=== PATIENT | female | born 1985 | race American Indian/Alaskan Native ===

== ENCOUNTER 2019-01-20 03:01 | Inpatient (IN) | payer MEDICAID ==
[2019-01-20] MEDS ORDERED: Penicillin G Potassium 5 MILLUNITS in Sodium Chloride 0.9% 100 ML IV STA (03:21)
[2019-01-20] MEDS ORDERED: Penicillin G Potassium 5,000,000 Unit Vial ONE (03:23)
[2019-01-20] MEDS ORDERED: Oxytocin/Normal Saline 60 UNIT/1,000 ML BAG ONE (03:51)
[2019-01-20] MEDS ORDERED: Misoprostol 400 MCG (4 X 100 MCG TAB) RECTAL PRN (05:01)
[2019-01-20] MEDS ORDERED: Tranexamic Acid 1,000 MG in Sodium Chloride 0.9% 100 ML IV PRN (05:01)
[2019-01-20] MEDS ORDERED: Acetaminophen 325 MG Tab PO PRN (05:01)
[2019-01-20] MEDS ORDERED: Carboprost Tromethamine 250 MCG/1 ML Amp IM ONE (05:01)
[2019-01-20] MEDS ORDERED: Naloxone 2 MG/2 ML Syringe IVPUSH PRN (05:01)
[2019-01-20] MEDS ORDERED: ePHEDrine 50 MG/ML SDV IVPUSH PRN (05:01)
[2019-01-20] MEDS ORDERED: Methylergonovine 0.2 MG/1 ML Amp IM PRN (05:01)
[2019-01-20] MEDS ORDERED: Docusate Sodium 100 MG Cap PO PRN (05:01)
[2019-01-20] MEDS ORDERED: Acetaminophen/oxyCODONE 325-5 MG Tab PO PRN ×2 (05:01)
[2019-01-20] MEDS ORDERED: diphenhydrAMINE 50 MG/ML SDV IVPUSH PRN (05:01)
[2019-01-20] MEDS ORDERED: Ondansetron 4 MG/2 ML SDV IV PRN (05:01)
[2019-01-20] MEDS ORDERED: Lactated Ringers 1,000 ML IV SCH (05:15)
[2019-01-20] MEDS ORDERED: Oxytocin/Normal Saline 30 UNIT/500 ML BAG IV SCH (05:30)
[2019-01-20] MEDS ORDERED: Morphine PF 150 MG/30 ML PCA Syringe IV SCH (05:30)
--- NOTE | 2019-01-20 08:15 | HP ---
PATIENT IDENTIFICATION: Milton Medina is a 33-year-old, G4, P3-0-0-3, intrauterine at 29 and 2/7 weeks by her history who presents with vaginal leaking and contractions. HISTORY OF PRESENT ILLNESS: The patient states she started vaginal leaking approximately 24 hours prior to presentation. She notes it as clear in nature and continues to leak throughout the day and associated with this has been contractions that started approximately 2 hours prior to admission, increasing in frequency and intensity to the point that they are coming every couple of minutes, felt in the lower abdomen, getting worse over time. She denies any spotting or bleeding. Upon her presentation, no care records were available. A stat ultrasound was called for as well as labs with no labs drawn. records obtained later. Records were called for, reviewed as below, and supplemented by the patient's history. OBSTETRICAL HISTORY OF PREGNANCIES: 1. In 02/2013, delivered a female, weighing 7 pounds 15 ounces in [place]. 2. In 08/2015, delivered a male, 8 pounds 14 ounces in [place]. 3. In 03/2018, male delivered, 8 pounds 13 ounces in [place] with all spontaneous vaginal deliveries, and the patient denies any complications with any of her previous pregnancies. PAST MEDICAL/PAST SURGICAL HISTORY: Cholecystectomy in 2012. Otherwise, no other hospitalizations or surgeries other than for deliveries. FAMILY HISTORY: She denies any anesthesia or bleeding problems or defects. It appears to be mother from cerebral hemorrhage and brother from an MVA. She has 2 sisters living and well, 1 brother living and well, and 3 children who are living and well. SOCIAL HISTORY: The patient smokes at least a half a pack a day. Smoked about 1-1/2 packs per day prior to conception with this . She denies any alcohol, tobacco, or drug use. She lives in the [place] area. She is visiting [employer] as a student. REVIEW OF SYSTEMS: Quickly reviewed, and otherwise, reviewed fully and felt to be noncontributory. She denies any fever, chills, sweats, cough, chest pain, shortness of breath, problem with bowel or bladder habits, swelling, numbness, or tingling. OBJECTIVE: Vital Signs: Blood pressure 137/77, heart rate 85. The patient feels afebrile. Appearance: Female, appears stated age, breathing and screaming through her contractions but answering questions appropriately in between them. HEENT: Head atraumatic. EOMs grossly intact. PERRLA. No scleral icterus. No otorhinorrhea. Mucous membranes are moist. Neck: No obvious tenderness. Lungs: Clear to auscultation bilaterally. No increased work of breathing. Heart: S1 and S2. Regular rate and rhythm. Abdomen: Gravid. Bigg indeterminate. Nontender and nondistended. Bowel sounds positive. No other organomegaly, pulsatile masses, or obvious hernias. No rebound, rigidity, or guarding. Genitourinary: Normal external female genitalia. Normal position and presentation of urethra. gentle speculum exam done and positive for pooling with gross rupture of membranes. After stat ultrasound was called for and revealed fundal placenta, vaginal exam revealed her to be 7 to 8 cm, breech presentation, 100% effaced, and 0 station. Extremities: Deep tendon reflexes 1 to 2/4 bilaterally and symmetric in the lower extremities. No peripheral edema. Psychiatric: Mood and affect congruent. Judgment and insight intact. Skin: Without any cyanosis, clubbing, or jaundice. LABORATORY DATA: White cell count 11.8, hemoglobin 14.2, platelets 296. Urine drug screen positive for methamphetamine. IMAGING: Stat ultrasound was called for. I was there and reviewing the ultrasound with the tech as it was being done, did reveal limited fluid around the baby, measurements approximately between 29 and 2/7 weeks to 30 and 2/7 weeks with breech presentation noted with placenta location being fundal. There was a concern with tissue anterior to the abdomen per tech. Worried possibly from omphalocele or gastroschisis which was discussed with the patient with live time while being evaluated by myself. HOSPITAL COURSE: After labs and ultrasound were done as well as vaginal exam,, while waiting for OR crew, I did discuss with patient the need for primary low transverse . Discussed the risks, benefits, alternatives, and complications of including but limited to infection; bleeding; damage to internal organs such as bowel, bladder, tubes, uterus, ovaries, and sometimes fetus; rarely needing a blood transfusion or further surgery; and rare maternal or . She understood and agreed and wished to proceed. Verbal and written consents were obtained, and questions were answered. Male partner was available during this discussion as well. heart tones at real baseline around the 140s with severe decelerations noted as low as in the 60s to 70s that may last up to approximately 3 minutes that were difficult to discern with contractions because tocometer was difficult to concern where contractions were present. ASSESSMENT: 1. Intrauterine at 29 and 2/7 weeks, confirmed with ultrasound today. 2. rupture of membranes with labor, approximately 24 hours prior to admission. 3. Active labor with advanced cervical dilation. 4. Nonreassuring status. 5. Breech presentation. 6. Group B Streptococcus unknown. 7. 4, para 3-0-0-3. 8. No records initially. Some of them have been located. We will proceed with no labs as we cannot find them. 9. Positive urine drug screen for methamphetamines. PLAN: Due to breech presentation with nonreassuring status and active labor, recommendation was made to proceed with primary low transverse under general anesthesia as soon as possible. Crew was called stat upon presentation of the patient to the hospital during initial evaluation. Proceed to the OR as soon as the crew is ready and available. Please see operative note for further details as well as other notes for further details. Antibiotics were called for to be given to the patient preoperatively. Otherwise, please see orders for further details. [facility] /[id number] BAUDILIO
--- NOTE | 2019-01-20 08:17 | PN ---
DATE: 01/20/2019 ADDENDUM: MEDICATIONS: The patient states she is only on vitamins. No other medications. [facility] /[id number]
[2019-01-20] MEDS ORDERED: Prenatal Multivitamin with Calcium/Folic Acid/Iron Tab PO SCH (09:00)
[2019-01-20] MEDS ORDERED: Oxytocin/Normal Saline 30 UNIT/500 ML BAG IV ONE (09:07)
[2019-01-20] MEDS ORDERED: Ketorolac 30 MG/ML SDV IVPUSH SCH (11:00)
[2019-01-20] MEDS: Lactated Ringers 1,000 ML IV SCH ×3 (11:45→17:20)
[2019-01-20] MEDS: Simethicone 80 MG Tab.Chew PO SCH ×2 (11:54→17:38)
--- NOTE | 2019-01-20 12:51 | OR ---
DATE: 01/20/2019 PREOPERATIVE DIAGNOSES: 1. Intrauterine at 29 and 2/7 weeks by patient history and confirmed with ultrasound today. 2. rupture membranes approximately 24 hours with now labor 3. Active labor. 4. Advanced cervical dilation being 7 to 8 cm during initial evaluation. 5. Breech presentation. 6. Group B Streptococcus unknown. 7. No records. 8. Positive urine drug screen for methamphetamine. 9. 4, para 3-0-0-3. POSTOPERATIVE DIAGNOSES: 1. Intrauterine at 29 and 2/7 weeks by patient history and confirmed with ultrasound today, delivered. 2. rupture membranes approximately 24 hours with now labor 3. Active labor. 4. Advanced cervical dilation being 7 to 8 cm during initial evaluation. 5. Breech presentation. Iker breech presentation noted with delivery. 6. Group B Streptococcus unknown. 7. No records. 8. Positive urine drug screen for methamphetamine. 9. 4, para 3-0-0-3. 10.Left lateral sulcus tear inferiorly, approximately 2 cm, repaired with uterine incision closure. PROCEDURE PERFORMED: Primary low transverse with two-layer uterine closure. COLLAR PACKER: Beba Lassiter MD, and Shaggy Stephenson MS-III. ANESTHESIA: Stat general anesthesia. ESTIMATED BLOOD LOSS: 600 mL. INTRAVENOUS FLUIDS: 1200 mL of lactated Ringer's with 500 mL of Pitocin. URINE OUTPUT: 200 mL and clear. START TIME: 4:16 UTERINE INCISION: 4:17 DELIVERY TIME: 4:18 STOP TIME: 4:50 FINDINGS: Male; scores of 2, 4, 6; weight unofficially on the Panda Warmer, approximately 1500 g. DESCRIPTION OF PROCEDURE IN DETAIL: After informed consent was obtained, the patient was wheeled to the OR, when they were ready in a stat fashion. Mensah had been placed prior to this in the OB suite. She was subsequently placed in supine position with left lateral tilt. Abdomen was prepped and draped in normal sterile fashion with stat cleansing of the abdomen with Betadine. Subsequently, general anesthesia was induced. A skin incision was then made on the lower abdomen in transverse Pfannenstiel fashion. This was carried down to the fascia which was scored in midline. Subcutaneous tissue was raked laterally, bluntly, and fascial incision was extended in a transverse fashion using blunt technique. Rectus and pyramidalis muscles were dissected from the fascia using blunt technique both inferiorly and superiorly. Rectus muscles were in the midline with blunt technique. Abdominal cavity was then entered in blunt technique. The incision was extended superiorly and inferiorly with blunt technique. Shaggy O large retractor was then introduced and used. Lower uterine segment was identified, and curvilinear incision was made over lower uterine segment. Uterus was entered sharply. Minimal fluid return that was noted to be clear. Uterine incision was then extended in transverse fashion using blunt technique. Hand was then used to deliver the breech with the fetus noted to be in iker breech presentation. This was lifted up through the pelvis and through the incision. Subsequently, back was made anterior, and anterior and posterior shoulders with the arms were delivered by sweeping the arms across the chest. vertex was then delivered by flexing the vertex with some mild fundal pressure. Cord was doubly clamped and cut, and was resuscitated per Dr. Lassiter and nurses at the warmer. Then, approximately 10 mL of cord blood was obtained for labs as well as the cord section for a drug screen. Placenta was delivered with gentle cord traction and fundal massage. The uterus was then exteriorized for better visualization and cleared of all blood clots and debris with lap sponge. Arciniega clamps were used to grasp the lateral portion of the incision. There was a 2 cm left lateral sulcus tear inferiorly that was incorporated into the repair of the uterine incision. The uterus was closed in a running locked fashion and tied at lateral margins using 1-0 Vicryl. Second imbricating layer was then applied with 1-0 Vicryl. First inspection of the uterine incision revealed hemostasis. Posterior cul-de-sac was then cleared of blood clots and debris with lap sponge, and uterus was returned to the abdomen. Second inspection of the uterine incision revealed hemostasis. Shaggy O retractor was then removed, and paracolic gutters were cleared of all blood clots and debris with lap sponge. Anterior cul-de-sac was then irrigated copiously, all blood clots were removed. Third and final inspection of the uterine incision and anterior cul-de-sac revealed hemostasis. Rectus muscles were then reapproximated in midline with a ovppal-ii-legte stitch. Subfascial tissues were found to be hemostatic and fascia was closed in running fashion and tied at lateral margins with 0 looped PDS. The subcutaneous tissue was irrigated copiously and hemostasis was reassured. The skin was re- approximated with medium herbert. Sterile Aquacel dressing was applied. The uterine fundus was firm and massaged at the conclusion of the case, -4 to -5 below umbilicus. No immediate complications were noted. Sponge, lap, and needle counts were correct. The patient did receive some antibiotics preoperatively. Pitocin per protocol. Most likely, will receive LINE TENDER and possible Toradol at the conclusion of case for pain control. Mother is currently stable at the time of dictation. Infant is currently being resuscitated, and upon my leaving the OR, had an IV started with D10W and positive pressure ventilation was being given through T- piece. [facility] /[id number] BAUDILIO
[2019-01-20] MEDS ORDERED: Albuterol 0.083% 2.5 MG/3 ML Neb Soln ONE (14:30)
[2019-01-20] MEDS ORDERED: Albuterol 0.083% 2.5 MG/3 ML Neb Soln NEB ONE (14:30)
[2019-01-20] MEDS ORDERED: fentaNYL 250 MCG/5 ML SDV IV ONE (15:23)
[2019-01-20] MEDS ORDERED: Lidocaine 2% 20 ML MDV INJECT ONE (15:23)
[2019-01-20] MEDS ORDERED: Lactated Ringers 1,000 ML IV ONE (15:23)
[2019-01-20] MEDS ORDERED: Propofol 200 MG/20 ML SDV IV ONE (15:23)
[2019-01-20] MEDS ORDERED: Succinylcholine 200 MG/10 ML MDV IV ONE (15:23)
[2019-01-20] MEDS ORDERED: Ketorolac 30 MG/ML SDV IVPUSH ONE (15:23)
[2019-01-21] MEDS ORDERED: Ibuprofen 800 MG Tab PO PRN (07:00)
--- NOTE | 2019-01-21 08:12 | PN ---
DATE: 01/20/2019 SUBJECTIVE: I was called to the room stat as concerns with bleeding. OBJECTIVE: Upon my arrival into the room, the patient was wheezing with mild cough. States she coughed over the last couple hours. Nurse notes Aquacel dressing within the last hour and a half has saturated with nothing noted on it prior. Urine output has been dark but within limits according to the nurse. Vital Signs: Blood pressure is 120s over 70s, heart rate is between 80 and 110s by my evaluation. Appearance: Female, wheezing as she is talking. Stat neb was called for with albuterol and this improved. Firm uterus, -4 below umbilicus. Aquacel dressing was subsequently removed as it was saturated and bulging. 600 mL clot was noted underneath this and removed and there was noted to be some oozing on left side incision and superior to this region is an approximately 10 cm spherical mass, suspected hematoma. Pressure was subsequently placed over the incision site where drainage was noted to be coming from on the left lateral portion and oozing decreased significantly. HOSPITAL COURSE: Stat CBC was called for as well as type and cross match for 2 units to be given and PT/INR and PTT were ordered-but unable to be done due to not enough blood drawn. Subsequently, I discussed this case with my partners and OR crew was called in to be ready and available and due to potential need for further evaluation, management, blood products, and further surgeons and after discussion with the patient, shared decision was made to transfer to higher level of care as fast as possible. Lung sounds improved to no wheezing after the nebulizer was given. Hematoma size in the left lower quadrant was stable, did not seem to be increasing in size and bleeding had stopped after continued pressure over this area. Case was discussed with Dr. Ocasio, correctional guard in [place] who has graciously agreed to accept in transfer. I did discuss case with him. Subsequently, I did discuss this with the patient and her male partner as well as risks, benefits, alternatives, and complications of transfer and need for blood products. We will have to give a stat emergency type but not cross match blood and consent was signed for this as well as well as my signature on the sheet. ASSESSMENT: Status post primary low-transverse section for breech presentation with active labor, advanced cervical dilation with a at 29 and 2/7 weeks with suspected prolonged rupture of membranes approximately 24 hours prior to delivery. The patient's drug screen was also notably for positive meth. PLAN: We will transfer to higher level of care. Start blood here if possible and continue while en route. Pain meds per flight crew and we will send to [place] as soon as possible. The patient understands and agrees with the above treatment plan. [facility] /[id number] MTDPriyanka
--- NOTE | 2019-01-21 08:18 | DISCH ---
ADMITTING DIAGNOSES: 1. Intrauterine at 29 and 2/7 weeks confirmed with ultrasound upon presentation and by the patient's history. 2. rupture of membranes in labor approximately 24 hours prior to presentation. 3. Active labor with advanced cervical dilation upon admission, nonreassuring status. 4. Breech presentation. 5. Group B streptococcus unknown. 6. 4, para 3-0-0-3. 7. Positive drug screen for methamphetamine. 8. No records initially. DISCHARGE DIAGNOSES: 1. Intrauterine at 29 and 2/7 weeks confirmed with ultrasound upon presentation and by the patient's history, delivered. 2. rupture of membranes in labor approximately 24 hours prior to presentation. 3. Active labor with advanced cervical dilation upon admission, nonreassuring status. 4. Breech presentation. 5. Group B streptococcus unknown. 6. 4, para 3-0-0-3. 7. Positive drug screen for methamphetamine. 8. No records initially. 9. Left lateral sulcus tear approximately 2 cm, repaired with a uterine incision repair and found to be hemostatic. 10.Active bleeding postoperatively with suspected hematoma, left lateral portion of the skin underneath the incision, with an estimated blood loss of a 1000 mL during that time and 600 mL during the surgery. 11.Anemia of acute blood loss. Hemoglobin dropping from 14 range down into the 10 range. HISTORY OF PRESENT ILLNESS: Please see H and P. SUMMARY OF HOSPITAL COURSE: The patient was admitted on the above date with the above diagnosis, underwent the above procedure with primary low transverse C- section under general anesthetic with an EBL of 600 mL yielding a male; scores of 2, 4, and 6; weighing 1420 g. This was done because of prolonged rupture of membranes with advanced cervical dilation, breech presentation, and nonreassuring status. Postoperatively, approximately around 2:00 pm, I was called stat to evaluate the patient as Aquacel dressing saturated. Please see notes in regard to this. There was noted to be a suspected hematoma underneath the skin on the left portion of the skin; and due to limited blood supply as well as potential for further complications, I did discuss with the patient and Dr. Ocasio, LEGAL ASSOCIATE, at [place] to be transferred to higher level of care. Dr. Ocasio has agreed, and the patient agreed as well, and we will be sending her via [facility] to [place]. With her EBL and anemia of acute blood loss, blood transfusions will be started of 2 units, has to be emergent in nature due to emergency and need to get a higher level of care as soon as possible. I did discuss with the patient and her male partner as well. CONDITION ON DISCHARGE COMPARED TO CONDITION ON ADMISSION: Guarded. DISCHARGE INSTRUCTIONS: Per flight crew. TIME SPENT: Over half an hour was spent in discharge evaluation and management of this patient. [facility] /[id number] BAUDILIO
== END 2019-01-20 16:07 | DRG 787 ==
LOC: DL.OBCHECK 03:01 → DL.MS 03:50 → OBSVTOIN 04:18
PROVIDERS: ADMIT Family Medicine; ATTEND Family Medicine
PROC: 10D00Z1 Extraction of Products of Conception, Low, Open Approach (ICD-10-PCS; principal; 2019-01-20)
PROC: 30233N1 Transfusion of Nonautologous Red Blood Cells into Peripheral Vein, Percutaneous Approach (ICD-10-PCS; 2019-01-20)
DX: O32.1XX0 Maternal care for breech presentation, not applicable or unspecified (principal); D62 Acute posthemorrhagic anemia; O42.013 Preterm premature rupture of membranes, onset of labor within 24 hours of rupture, third trimester; O76 Abnormality in fetal heart rate and rhythm complicating labor and delivery; O99.02 Anemia complicating childbirth; O99.333 Smoking (tobacco) complicating pregnancy, third trimester; F17.210 Nicotine dependence, cigarettes, uncomplicated; Z3A.29 29 weeks gestation of pregnancy; Z37.0 Single live birth
CPT/HCPCS: 36430; 76815; 80305-QW; 80307; 81001; 85027; 86592; 86762; 86803; 86850; 86900; 86901; 86920; 86922; 87340; 87389; 94640; J0330; J1885; J2001; J2274; J2540; J2590; J2704; J3010; J7050; J7120; J7613-GY; P9016